=== PATIENT | male | born 1990 | race Caucasian/White ===

== ENCOUNTER 2017-12-01 14:23 | Emergency (ER) | payer MEDICAID ==
[~2017-12-01] VITALS: Ht 193 cm; Wt 86.2 kg
--- NOTE | 2017-12-01 14:25 | NUR ---
pt bibra to er bed 15 accompanied by pd. per report, bystander called 911 concerned about a pt acting bizzare and ryunning around naked. 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 vss. awaiting md bullock.
--- NOTE | 2017-12-01 15:10 | NUR ---
dr tavarez at bedside for eval.
--- NOTE | 2017-12-01 16:33 | NUR ---
Patient discharged to home in stable condition. Written and verbal after care instructions given. Patient verbalizes understanding of instruction.
[2017-12-01 16:34] VITALS: BP 132/84
== END 2017-12-01 16:35 | disposition home or self-care (01) ==
LOC: ER 14:25
DX: R45.1 Restlessness and agitation (principal); F41.9 Anxiety disorder, unspecified; F32.9 Major depressive disorder, single episode, unspecified; F17.200 Nicotine dependence, unspecified, uncomplicated; Z60.2 Problems related to living alone; Z86.19 Personal history of other infectious and parasitic diseases
CPT/HCPCS: A4606; Z7610